=== PATIENT | male | born 1955 | race Caucasian/White ===

== ENCOUNTER → 2019-02-13 | Day surgery (SDC) | payer OTHER ==
[2019-02-11 10:08] VITALS: BMI 40.1
[~2019-02-13] MED LIST: LACTATED RINGERS 1,000 ML IV SCH; LIDOCAINE 1% 20 ML VIAL (10MG/ML) FOR IV START INTRADERMA PRN; LIDOCAINE 1% INJ 10MG/ML (20 ML MDV) ONE; PROPOFOL 10 MG/ML 20 ML VIAL IV ONE
[2019-02-13 07:18] VITALS: TEMP 98.4
[2019-02-13 07:34] LABS: Glucose,Whole Blood 124 mg/dL (75-99)
--- NOTE | 2019-02-13 07:48 | P.GSHP ---
History of Present Illness H&P Date: 02/13/19 Chief Complaint: Rectal bleeding Patient here today for colonoscopy. He has had increased rectal bleeding recently. Last colonoscopy 2013. History of known internal and external hemorrhoids. Last time he was seen he had a symptomatic hemorrhoid in the right posterior location was mildly tender. That was in 2018. He does have a history of adenomatous colon polyps. No family history of colon cancer. Past Medical History Past Medical History: Diabetes Mellitus, Hyperlipidemia, Hypertension, Prostate Disorder, Thyroid Disorder History of Any Multi-Drug Resistant Organisms: None Reported Past Surgical History: Orthopedic Surgery, Tonsillectomy Additional Past Surgical History / Comment(s): ORIF RT ANKLE. RT KNEE SX. COLONOSCOPY Past Anesthesia/Blood Transfusion Reactions: No Reported Reaction Smoking Status: Former smoker - Past Family History Mother Family Medical History: Cancer Medications and Allergies Home Medications Medication Instructions Recorded Confirmed Type Atorvastatin [Lipitor] 10 mg PO DAILY 02/11/19 02/13/19 History Levothyroxine Sodium 125 mcg PO DAILY 02/11/19 02/13/19 History Metoprolol Succinate [Toprol XL] 50 mg PO DAILY 02/11/19 02/13/19 History Tamsulosin HCl [Flomax] 0.4 mg PO DAILY 02/11/19 02/13/19 History metFORMIN HCL [Glucophage] 500 mg PO DAILY 02/11/19 02/13/19 History Allergies Allergy/AdvReac Type Severity Reaction Status Date / Time No Known Allergies Allergy Verified 02/13/19 07:21 Surgical - Exam Vital Signs Resp 16 02/13/19 07:14 Physical exam: General: Well-developed, well-nourished HEENT: Normocephalic, sclerae nonicteric Abdomen: Nontender, nondistended Extremities: No edema Neuro: Alert and oriented Results - Labs Abnormal Lab Results - Last 24 Hours (Table) 02/13/19 Range/Units 07:28 POC Glucose (mg/dL) 124 H (75-99) mg/dL Assessment and Plan (1) Rectal bleeding Narrative/Plan: Will proceed with colonoscopy at this time Current Visit: Yes Status: Acute Code(s): K62.5 - HEMORRHAGE OF ANUS AND RECTUM SNOMED Code(s): 88709133
--- NOTE | 2019-02-13 08:04 | P.PCN ---
Date of Procedure: 02/13/19 Procedure(s) Performed: PREOPERATIVE DIAGNOSIS: Rectal bleeding POSTOPERATIVE DIAGNOSIS: Ascending colon polyp, diverticulosis, external hemorrhoid PROCEDURE: Colonoscopy with snare polypectomy ANESTHESIA: MAC SURGEON: Amando Casey M.D. SPECIMENS: Polyp ENDOSCOPIC PROCEDURE: The patient was placed on the endoscopy table in the left decubitus position. The Olympus colonoscope was inserted into the anus and passed under direct visualization to the base of the cecum. The appendiceal orifice was visualized. From that point the scope was slowly withdrawn inspecting all surfaces carefully. There were no neoplastic inflammatory or polypoid lesions throughout the cecum, ascending, and transverse colon. In the descending colon at 55 cm a pedunculated polyp was removed using the snare with cautery technique. The remainder of the descending sigmoid and rectum were normal. There was mild scattered diverticulosis seen. Digital rectal examination revealed internal and external hemorrhoids. The most prominent hemorrhoid was still in the right posterior position. There was no evidence of active or recent bleeding there. The patient was taken to the recovery room in stable condition per anesthesia guidelines. RECOMMENDATIONS: Increase fiber. More fluid intake. Await biopsy results.
[2019-02-13 08:11] VITALS: RESP 18
[2019-02-13 08:31] VITALS: BP 160/76; PULSE 62
== END ==
LOC: ORWHC2ENDO 06:56
PROVIDERS: ATTEND Surgery
DX: D12.4 Benign neoplasm of descending colon (principal); K57.30 Diverticulosis of large intestine without perforation or abscess without bleeding; K64.4 Residual hemorrhoidal skin tags; K64.8 Other hemorrhoids; Z86.010 Personal history of colon polyps; I10 Essential (primary) hypertension; E78.5 Hyperlipidemia, unspecified; E11.9 Type 2 diabetes mellitus without complications; N40.0 Benign prostatic hyperplasia without lower urinary tract symptoms; E07.9 Disorder of thyroid, unspecified; Z87.891 Personal history of nicotine dependence; Z79.84 Long term (current) use of oral hypoglycemic drugs; Z79.890 Hormone replacement therapy; Z79.899 Other long term (current) drug therapy
CPT/HCPCS: 88305; 45385; J2001; J2704

== ENCOUNTER 2020-04-11 07:43 | Day surgery (SDC) | payer OTHER ==
[2020-04-01 11:22] VITALS: BMI 40.5
[~2020-04-11 07:43] MED LIST changes: +DEXAMETHASONE SOD PHOSPHATE 10 MG/ML 1 ML VIAL IV ONE; +HEPARIN SODIUM,PORCINE 5,000 UNIT/ML 1 ML VIAL SQ ONE; +LIDOCAINE 1% (10MG/ML) FOR IV START INTRADERMA PRN; -LIDOCAINE 1% 20 ML VIAL (10MG/ML) FOR IV START INTRADERMA PRN; -LIDOCAINE 1% INJ 10MG/ML (20 ML MDV) ONE; +MIDAZOLAM 2 MG/2 ML VIAL IV PRN; -PROPOFOL 10 MG/ML 20 ML VIAL IV ONE; +fentaNYL (PF) 50 MCG/ML 2 ML AMP IV PRN
[2020-04-11] MEDS ORDERED: HEPARIN SODIUM,PORCINE 5,000 UNIT/ML 1 ML VIAL ONE (08:21)
[2020-04-11 08:22] LABS: Glucose,Whole Blood 128 mg/dL (75-99)
[2020-04-11] MEDS ORDERED: DEXAMETHASONE SOD PHOSPHATE 10 MG/ML 1 ML VIAL IV ONE (08:23)
[2020-04-11 08:34] LABS: HCT 43.8 % (39.0-53.0); HGB 14.6 gm/dL (13.0-17.5); MCHC 33.4 g/dL (31.0-37.0); MCV 80.8 fL (80.0-100.0); Mean Platelet Volume 7.3; Platelet Count 190 k/uL (150-450); RBC 5.42 m/uL (4.30-5.90); RDW 13.6 % (11.5-15.5); WBC 6.4 k/uL (3.8-10.6)
[2020-04-11] MEDS ORDERED: ONDANSETRON 4 MG/2 ML VIAL ONE (08:40)
[2020-04-11] MEDS ORDERED: ONDANSETRON 4 MG/2 ML VIAL IVP ONE (08:41)
--- NOTE | 2020-04-11 09:02 | P.GSHP ---
History of Present Illness H&P Date: 04/11/20 Chief Complaint: Incarcerated umbilical and ventral hernia 65-year-old male seen 1 month ago. She has complaints of a bulge above the umbilicus which is painful to him. Also thinks he may feel a bulge at the umbilicus and right groin at times. On examining office patient was found have an incarcerated umbilical and ventral hernia which were tender. A small reducible right inguinal hernia was suspected although somewhat difficult to palpate with certainty. No nausea or vomiting. No change in bowel habits. Past Medical History Past Medical History: Diabetes Mellitus, Hyperlipidemia, Hypertension, Prostate Disorder, Thyroid Disorder History of Any Multi-Drug Resistant Organisms: None Reported Past Surgical History: Orthopedic Surgery, Tonsillectomy Additional Past Surgical History / Comment(s): ORIF RT ANKLE. RT KNEE SX. COLONOSCOPY Past Anesthesia/Blood Transfusion Reactions: No Reported Reaction Smoking Status: Former smoker - Past Family History Mother Family Medical History: Cancer Medications and Allergies Home Medications Medication Instructions Recorded Confirmed Type Atorvastatin [Lipitor] 10 mg PO DAILY 02/11/19 04/11/20 History Levothyroxine Sodium 175 mcg PO DAILY 02/11/19 04/11/20 History Metoprolol Succinate [Toprol XL] 50 mg PO DAILY 02/11/19 04/11/20 History Tamsulosin HCl [Flomax] 0.4 mg PO DAILY 02/11/19 04/11/20 History metFORMIN HCL [Glucophage] 500 mg PO DAILY 02/11/19 04/11/20 History Omeprazole [PriLOSEC] 20 mg PO [id number] 04/01/20 04/11/20 History Allergies Allergy/AdvReac Type Severity Reaction Status Date / Time No Known Allergies Allergy Verified 04/11/20 08:12 Surgical - Exam Vital Signs Temp Resp BP 96 F L 18 185/86 04/11/20 08:14 04/11/20 08:14 04/11/20 08:14 Physical exam: General: Well-developed, well-nourished HEENT: Normocephalic, sclerae nonicteric Abdomen: Nontender, nondistended, incarcerated ventral and umbilical hernia, possible small right inguinal hernia reducible Extremities: No edema Neuro: Alert and oriented Results - Labs 04/11/20 08:25 Abnormal Lab Results - Last 24 Hours (Table) 04/11/20 Range/Units 08:17 POC Glucose (mg/dL) 128 H (75-99) mg/dL Assessment and Plan (1) Incarcerated ventral hernia Narrative/Plan: Will proceed with open repair with mesh incarcerated umbilical and ventral hernia at this time. Observation of right inguinal hernia for now. Risks of bleeding, infection, recurrence, bladder and bowel injury, numbness, nerve injury were discussed with the patient. The patient understands and wishes to proceed. Current Visit: Yes Status: Acute Code(s): K43.6 - OTHER AND UNSP VENTRAL HERNIA WITH OBSTRUCTION, W/O GANGRENE SNOMED Code(s): 599213958
[2020-04-11] MEDS ORDERED: GLYCOPYRROLATE 0.2 MG/ML 2 ML VIAL ONE (10:11)
[2020-04-11] MEDS ORDERED: NEOSTIGMINE 1 MG/ML 10 ML VIAL ONE (10:11)
[2020-04-11] MEDS ORDERED: ROCURONIUM BROMIDE 10 MG/ML 5 ML VIAL IV ONE (10:11)
[2020-04-11] MEDS ORDERED: SUCCINYLCHOLINE CHLORIDE 100 MG/5 ML SYR IV ONE (10:11)
[2020-04-11] MEDS ORDERED: LIDOCAINE 1% INJ 10MG/ML (20 ML MDV) ONE (10:11)
[2020-04-11] MEDS ORDERED: PROPOFOL 10 MG/ML 20 ML VIAL IV ONE (10:11)
[2020-04-11] MEDS ORDERED: MIDAZOLAM 2 MG/2 ML VIAL ONE (10:11)
[2020-04-11] MEDS ORDERED: fentaNYL (PF) 50 MCG/ML 2 ML AMP ONE (10:11)
[2020-04-11] MEDS ORDERED: KETOROLAC 30 MG/ML 1 ML VIAL ONE (10:11)
[2020-04-11] MEDS ORDERED: LACTATED RINGERS 1,000 ML IV ONE (10:58)
[2020-04-11] MEDS ORDERED: BUPIVACAINE (PF) 0.25% 30 ML VIAL SQ ONE ×2 (10:59→11:23)
[2020-04-11] MEDS ORDERED: HYDROcodone/APAP 5-325MG 1 EACH TAB PO PRN (11:31)
[2020-04-11] MEDS ORDERED: NALOXONE 0.4 MG/ML 1 ML VIAL IV PRN (11:31)
--- NOTE | 2020-04-11 11:39 | P.OP ---
Date of Procedure: 04/11/20 Procedure(s) Performed: PREOPERATIVE DIAGNOSIS: Incarcerated ventral hernia POSTOPERATIVE DIAGNOSIS: Same PROCEDURE: Incarcerated ventral hernia repair with mesh SURGEON: Carmela EBL: Minimal ANESTHESIA: Gen. COMPLICATIONS: None OPERATIVE PROCEDURE: Patient placed on the operating table in the supine position. Abdomen was prepped and draped in usual sterile fashion. A vertical incision was then made superior to the umbilicus Extending to the left of the umbilicus. Dissection through the subcutaneous tissues took place using electrocautery. The patient had a defect at the ventral hernia that measured 3 x 1.5 cm and a smaller 1 cm umbilical defect. Both hernia sacs were excised using electrocautery. The omentum within the ventral hernia was partially excised. Vessels were ligated using 3-0 silk ties. The remaining omentum was reduced back into the peritoneal cavity. The umbilical hernia fascial defect was then closed using [id number] 0 Ethibond sutures. The 6.4 cm ventral ex mesh was placed beneath the fascia and sutured in place using trans-fascial 0 Ethibond sutures. The primary ventral defect was then closed horizontally using a overlapping vest over pants interrupted 0 Ethibond mattress sutures. The subcutaneous tissues were closed using 3-0 Vicryl sutures. The skin was closed using a running 4-0 Monocryl suture. Skin glue and sterile dressings were applied. DISPOSITION: Stable to recovery room
[2020-04-11 11:51] VITALS: TEMP 98
[2020-04-11 11:56] LABS: Glucose,Whole Blood 175 mg/dL (75-99)
[2020-04-11] MEDS ORDERED: ACETAMINOPHEN TAB 325 MG TAB PO SCH (12:00)
[2020-04-11] MEDS ORDERED: ACETAMINOPHEN TAB 325 MG TAB ONE (12:40)
[2020-04-11 13:46] VITALS: BP 151/72; PULSE 73; RESP 18
[2020-04-11] MEDS ORDERED: IBUPROFEN 600 MG TAB PO SCH (14:33)
== END 2020-04-11 13:47 | disposition home or self-care (01) ==
LOC: OR 07:43
PROVIDERS: ATTEND Surgery
DX: K43.6 Other and unspecified ventral hernia with obstruction, without gangrene (principal); K42.9 Umbilical hernia without obstruction or gangrene; I10 Essential (primary) hypertension; E11.9 Type 2 diabetes mellitus without complications; K21.9 Gastro-esophageal reflux disease without esophagitis; Z87.891 Personal history of nicotine dependence; Z79.84 Long term (current) use of oral hypoglycemic drugs; Z79.890 Hormone replacement therapy; Z79.899 Other long term (current) drug therapy; Z90.89 Acquired absence of other organs; Z98.890 Other specified postprocedural states; E07.9 Disorder of thyroid, unspecified; N42.9 Disorder of prostate, unspecified
CPT/HCPCS: 49561; 49568; 85027; 88302; C1781; J2250; J1644; J1100; J2710; J0690; J2405; J2001; J3010; J1885; J0330; J2704

== ENCOUNTER → 2024-03-10 | Outpatient (CLI) | payer MEDICARE ==
--- NOTE | 2024-03-11 22:17 | XR ---
EXAMINATION TYPE: XR lumbosacral spine min 4V DATE OF EXAM: 03/10/2024 COMPARISON: None HISTORY: Low back pain and sacroiliac joint pain TECHNIQUE: 5V lumbar spine FINDINGS: There are 5 lumbar-type vertebral bodies. Pedicles are intact. Spondylosis is present. Some facet degenerative change is present. No spondylolytic defects are evident. Note is made of vascular calcification within the aorta Some narrowing of the L4-5 disc height is present. Posterior L5-S1 disc height narrowing is present. Milder posterior L3-4 and L2-3 disc height narrowing is present. Spondylosis is present. IMPRESSION: 1. Spondylosis. 2. Degenerative disc changes lower lumbar spine
== END | disposition home or self-care (01) ==
LOC: RADXRMAIN 09:40
PROVIDERS: ATTEND Family Medicine
DX: M47.816 Spondylosis without myelopathy or radiculopathy, lumbar region (principal); M47.817 Spondylosis without myelopathy or radiculopathy, lumbosacral region; M51.36 Other intervertebral disc degeneration, lumbar region
CPT/HCPCS: 72110